=== PATIENT | male | born 1945 | race American Indian/Alaskan Native ===

== ENCOUNTER 2017-02-25 08:35 | Inpatient (IN) | payer MEDICARE, BC ==
[2016-08-14 08:52] VITALS: BMI 23.5
[2017-02-25] MEDS: ceFAZolin IV 1 gm in Dextrose 50 ML IVPB ONE ×2 (10:00→11:15)
[2017-02-25] MEDS ORDERED: Propofol 10 mg/ml Inj (20 ML) ONE (10:51)
[2017-02-25] MEDS ORDERED: Midazolam 2 MG/2 ML VIAL ONE (10:51)
[2017-02-25] MEDS ORDERED: Succinylcholine Chloride 20 mg/ml Syr (5 ml) IV ONE (10:53)
[2017-02-25] MEDS: Lidocaine 1% Inj (20ml) ONE ×2 (11:18→11:38)
[2017-02-25] MEDS ORDERED: Bupivacaine HCl 0.25% PF (10 ml) Inj ONE (11:18)
[2017-02-25] MEDS: Bupivacaine HCl 0.25% PF (10 ml) Inj ONE ×2 (11:19→11:38)
[2017-02-25] MEDS ORDERED: Neostigmine Methylsulfate 3mg/3ml Syringe IV ONE (11:30)
[2017-02-25] MEDS ORDERED: Rocuronium 10 mg/ml (5 ml) ONE (11:44)
[2017-02-25] MEDS ORDERED: Oxycodone/Acetaminophen 5/325 mg Tab PO PRN (11:49)
[2017-02-25] MEDS ORDERED: Dextrose 5%/0.45% NS 1,000 ML IV SCH (12:00)
[2017-02-25] MEDS ORDERED: Lactated Ringer's 1,000 ML IV ONE (12:30)
[2017-02-25] MEDS: HYDROmorphone 0.5 mg/0.5 ml ISec IVP PRN ×2 (12:36→12:53)
--- NOTE | 2017-02-25 14:03 | OP ---
PROCEDURE DATE: 02/25/2017 PREOPERATIVE DIAGNOSIS: Midline incisional hernia. POSTOPERATIVE DIAGNOSES: Midline incisional hernia with adhesions. PROCEDURE PERFORMED: Primary repair of midline incisional hernia with extensive lysis of adhesions. SURGEON: Eddie St MD DEBONING TEAM LEADER: Dr. Marroquin ANESTHESIA: General endotracheal. ESTIMATED BLOOD LOSS: 40 mL. POSTOPERATIVE CONDITION: Stable. INDICATIONS FOR SURGERY: This is a 71-year-old male status post a Cem's procedure for a sigmoid volvulus followed by a closure of colostomy. He has developed a midline incisional hernia and now w ill undergo repair. GROSS FINDINGS: There was a midline incisional hernia noted with a large hernia sac, which contained omentum and bowel. There were a fair amount of adhesions, which had to be taken down prior to prima ry repair. PROCEDURE: The patient taken to the operating room, placed in the supine position. General anesthes ia was administered. The abdomen was prepped and draped. A midline incision was made over the herni a site. Hernia sac was encountered, dissected free down to its fascial edge. It was opened and all remaining contents of the hernia were reduced through extensive lysis of adhesions. Serosal tears to the small bowel and transverse colon were repaired with silk. A mesenteric bleeder was also repaire d. The wound was irrigated with copious amounts of saline solution. A primary repair was then accom plished with interrupted #1 Novafil suture of the hernia. An adjacent tissue transfer closure was pe rformed on the overlying skin due to a large space defect. The patient's skin was closed with M onocryl and clips. The patient tolerated the procedure well, returned to recovery room in stable con dition. Eddie St MD cc: [id number] TT: 02/25/2017 14:02:16 en
--- NOTE | 2017-02-25 15:40 | CP.PCM.CON ---
History of Present Illness - History of Present Illness History of Present Illness: PGY2 Consult Note - Dr. Peace's service: Patient is a 71 year old male with PMHx of prostate cancer, laryngeal cancer, HTN, hypokalemia and vitamin D deficiency presenting s/p incisional hernia repair. Patient is currently in PACU. Patient has no complaints at this time. Patient denies fever, chills, chest pain, SOB, abdominal pain, nausea, vomiting, diarrhea, constipation, dysuria. PMHx: as above PSHx: prostatectomy, left knee surgery, hernia repair x2, colostomy Social Hx: quit smoking 7 years ago before which he smoked 1/2ppd for 4 years, denies ETOH and drug use Family Hx: denies cancer, stroke, PA, lung problems in family Allergies: NKDA Review of Systems - Constitutional Constitutional: absent: Chills, Fever - EENT Eyes: absent: Change in Vision Ears: absent: Dizziness - Cardiovascular Cardiovascular: absent: Chest Pain - Respiratory Respiratory: absent: Cough, Dyspnea - Gastrointestinal Gastrointestinal: absent: Abdominal Pain, Constipation, Diarrhea, Nausea, Vomiting - Genitourinary Genitourinary: absent: Dysuria - Musculoskeletal Musculoskeletal: absent: Back Pain - Integumentary Integumentary: absent: Rash - Neurological Neurological: absent: Dizziness, Headaches - Psychiatric Psychiatric: absent: Anxiety - Hematologic/Lymphatic Hematologic: absent: Easy Bleeding, Easy Bruising Past Patient History - Past Medical History & Family History Past Medical History?: Yes Past Family History: Reviewed and not pertinent - Past Social History Smoking Status: Former Smoker Alcohol: None Drugs: Denies Home Situation {Lives}: With Family - CARDIAC Hx Cardiac Disorders: Yes Hx Hypertension: Yes - HEENT Hx HEENT Problems: Yes (HX CANCER LARYNX 2012) - HEMATOLOGICAL/ONCOLOGICAL Hx Cancer: Yes (laryngeal cancer (2012)/HAD RADIATION/CHEMO 2012) Hx Chemotherapy: Yes Hx Metastesis: No Other/Comment: Laryngeal Ca 2012. Radiation for Prostatic CA 2002 - MUSCULOSKELETAL/RHEUMATOLOGICAL Hx Musculoskeletal Disorders: Yes Hx Osteoarthritis: Yes - GASTROINTESTINAL Hx Gastrointestinal Disorders: Yes Hx Bowel Surgery: Yes Hx Colostomy: Yes Hx Hemorrhoids: Yes Other/Comment: Hx. Colostomy october 2015 - GENITOURINARY/GYNECOLOGICAL Hx Genitourinary Disorders: Yes Hx Prostate Cancer: Yes Hx Prostate Problems: Yes - SURGICAL HISTORY Hx Surgeries: Yes Hx Arthroscopy: Yes (LEFT KNEE) Hx Herniorrhaphy: Yes (ventral hernia repair) Hx Joint Replacement: Yes (LEFT TOTAL KNEE REPLACEMENT IN 2010) Hx Vascular Access Device: Yes (CENTRAL LINE/REMOVED) Other/Comment: "PROSTATE SURGERY INSERTION GT TUBE DUE TO CA LARYNX REMOVAL GT TUBE - ANESTHESIA Hx Anesthesia: Yes Hx Anesthesia Reactions: No Hx Malignant Hyperthermia: No Has any member of the family had a problem w/ anesthesia?: (UNKNOWN) Meds Allergies/Adverse Reactions: Allergies Allergy/AdvReac Type Severity Reaction Status Date / Time pollen extracts Allergy Intermediate COUGH Verified 08/14/16 09:36 - Medications Medications: Current Medications Docusate Sodium (Colace) 100 mg PO BID [facility] Enoxaparin Sodium (Lovenox) 30 mg SC 1000,2200 [facility] Home Med (Ergocalciferol (Vitamin D2) [Vitamin D2]) 2,000 unit PO DAILY [facility] Home Med (Olmesartan/Amlodipin/Hcthiazid [Tribenzor 40-10-25 Mg Tablet]) 1 tab PO DAILY [facility] Dextrose/Sodium Chloride (Dextrose 5%/0.45% Ns 1000 Ml) 1,000 mls @ 100 mls/hr IV .Q10H [facility] Ondansetron HCl (Zofran Inj) 4 mg IVP Q6 PRN PRN Reason: Nausea/Vomiting Oxycodone/Acetaminophen (Percocet 5/325 Mg Tab) 2 tab PO Q4H PRN PRN Reason: pain Stop: 02/28/17 11:50 Pantoprazole Sodium (Protonix Inj) 40 mg IVP DAILY [facility] Physical Exam - Constitutional Appears: Non-toxic, No Acute Distress - Head Exam Head Exam: NORMAL INSPECTION - Eye Exam Eye Exam: EOMI - ENT Exam ENT Exam: Mucous Membranes Dry - Respiratory Exam Respiratory Exam: Clear to Auscultation Bilateral, NORMAL BREATHING PATTERN. absent: Rales, Rhonchi, Wheezes - Cardiovascular Exam Cardiovascular Exam: REGULAR RHYTHM, +S1, +S2. absent: Gallop, Systolic Murmur - GI/Abdominal Exam GI & Abdominal Exam: Normal Bowel Sounds, Soft, Tenderness (clean vertical dressing at midline). absent: Distended, Firm - Extremities Exam Extremities exam: Positive for: normal capillary refill, pedal pulses present. Negative for: pedal edema - Neurological Exam Neurological exam: Alert, Oriented x3 - Psychiatric Exam Psychiatric exam: Normal Affect, Normal Mood Results - Vital Signs Recent Vital Signs: Last Vital Signs Temp 97.2 F L 02/25/17 13:00 Pulse 62 02/25/17 14:30 Resp 12 02/25/17 14:30 BP 135/79 02/25/17 14:30 Pulse Ox 97 02/25/17 14:30 Assessment & Plan - Assessment and Plan (Free Text) Assessment: 1. s/p incisional hernia repair POD#[address] D5-1/2NS @ 100cc/hr Percocet 5/325mg 2 tab PO Q4H PRN pain Colace 100mg PO BID Zofran 4mg IVP Q6 PRN N/V 2. Leukopenia with neutropenia F/U CBC in AM F/U HIV Abs 3. Hypokalemia K+ 3.4 on 02/20/17 F/U CMP in AM Take potassium twice a day at home for 3 days and then resume daily 4. HTN Continue home med tomorrow Patient took medication this AM. 5. Vitamin D deficiency Vitamin D 2000U PO daily 6. Prophylaxis SCDs Lovenox 30mg SC BID Protonix 40mg PO daily
[2017-02-25] MEDS: Enoxaparin 30 mg Syringe SC SCH (21:58)
[2017-02-26 06:41] LABS: BASO % 0.2 % (0.0-2.0); EOS # 0.2 K/uL (0.0-0.7); EOS % 3.4 % (0.0-4.0); HEMATOCRIT 39.4 % (35.0-51.0); LYMPH # 1.1 K/uL (1.0-4.3); LYMPH % 17.8 % (20.0-40.0); MEAN CELL VOLUME 85.8 fL (80.0-94.0); MEAN CORPUSCULAR HEMOGLOBIN 27.8 pg (27.0-31.0); MEAN CORPUSCULAR HGB CONC 32.4 g/dL (33.0-37.0); MEAN PLATELET VOLUME 8.6 fL (7.2-11.7); MONO # 0.8 K/uL (0.0-0.8); MONO % 12.6 % (0.0-10.0); RED CELL DISTRIBUTION WIDTH 13.9 % (11.5-14.5); WHITE BLOOD COUNT 6.2 K/uL (4.8-10.8)
[2017-02-26 06:44] LABS: CHLORIDE 92 mmol/L (98-107)
[2017-02-26 06:45] LABS: POTASSIUM 3.4 mmol/L (3.6-5.2); SODIUM 141 mmol/L (132-148)
[2017-02-26 06:47] LABS: ALKALINE PHOSPHATASE 64 U/L (38-126); AST/SGOT 29 U/L (17-59); BILIRUBIN,TOTAL 0.7 mg/dL (0.2-1.3); BLOOD UREA NITROGEN 12 mg/dL (9-20); CARBON DIOXIDE 36 mmol/L (22-30); GFR AFRICAN-AMERICAN > 60; TOTAL PROTEIN 7.2 g/dL (6.3-8.3)
[2017-02-26 06:48] LABS: ALT/SGPT 21 U/L (21-72); CALCIUM 8.3 mg/dl (8.6-10.4); GLUCOSE,RANDOM 95 mg/dL (75-110)
[2017-02-26 08:13] VITALS: BP 157/88; PULSE 60; RESP 18; TEMP 98.5; O2SAT 96
[2017-02-26] MEDS ORDERED: Potassium Chloride 20 mEq ER Tab PO ONE (09:30)
[2017-02-26] MEDS: Enoxaparin 30 mg Syringe SC SCH (09:37)
[2017-02-26] MEDS ORDERED: Ergocalciferol 50,000 Intl Units Cap PO SCH (10:00)
[2017-02-26] MEDS ORDERED: LOSARTAN 100 MG PO SCH (10:00)
--- NOTE | 2017-02-26 11:23 | CP.PCM.PN ---
<Maurice Elliott - Last Filed: 02/26/17 11:19> Subjective - Date & Time of Evaluation Date of Evaluation: 02/26/17 Time of Evaluation: 11:19 - Subjective Subjective: PGY-[address] Peace's service Pt seen and examined at bedside. Pt is POD#1 from hernia repair. Pt states that the pain is well tolerating. He is passing flatus. Denies fevers, chills, chest pain, sob, nausea or vomiting. Pt tolerated breakfast this morning well. Objective - Vital Signs/Intake and Output Vital Signs (last 24 hours): Temp Pulse Resp BP Pulse Ox 98.5 F 60 18 157/88 H 96 02/26/17 07:00 02/26/17 07:00 02/26/17 07:00 02/26/17 07:00 02/26/17 07:00 Intake and Output: 02/26/17 02/26/17 06:59 18:59 Output Total 950 Balance -950 - Medications Medications: Current Medications Amlodipine Besylate (Norvasc) 10 mg PO DAILY [facility] Last Admin: 02/26/17 09:34 Dose: 10 mg Docusate Sodium (Colace) 100 mg PO BID [facility] Last Admin: 02/26/17 09:36 Dose: 100 mg Enoxaparin Sodium (Lovenox) 30 mg SC 1000,2200 [facility] Last Admin: 02/26/17 09:37 Dose: 30 mg Ergocalciferol (Drisdol 50,000 Intl Units Cap) 1 cap PO QWK [facility] Last Admin: 02/26/17 09:36 Dose: 1 cap Hydrochlorothiazide (Hydrodiuril) 25 mg PO DAILY [facility] Last Admin: 02/26/17 09:35 Dose: 25 mg Dextrose/Sodium Chloride (Dextrose 5%/0.45% Ns 1000 Ml) 1,000 mls @ 100 mls/hr IV .Q10H [facility] Losartan Potassium (Cozaar) 100 mg PO DAILY [facility] Last Admin: 02/26/17 09:37 Dose: 100 mg Ondansetron HCl (Zofran Inj) 4 mg IVP Q6 PRN PRN Reason: Nausea/Vomiting Oxycodone/Acetaminophen (Percocet 5/325 Mg Tab) 2 tab PO Q4H PRN PRN Reason: pain Stop: 02/28/17 11:50 Pantoprazole Sodium (Protonix Inj) 40 mg IVP DAILY [facility] Last Admin: 02/26/17 09:38 Dose: 40 mg - Labs Labs: 02/26/17 06:05 02/26/17 06:05 - Constitutional Appears: Well, Non-toxic, No Acute Distress - Head Exam Head Exam: ATRAUMATIC, NORMOCEPHALIC - Respiratory Exam Respiratory Exam: Clear to Ausculation Bilateral, NORMAL BREATHING PATTERN - Cardiovascular Exam Cardiovascular Exam: +S1, +S2 - GI/Abdominal Exam GI & Abdominal Exam: Soft, Normal Bowel Sounds Additional comments: dressings in place, c/d/i - Back Exam Back Exam: NORMAL INSPECTION - Neurological Exam Neurological Exam: Alert, Awake - Skin Skin Exam: Dry, Warm Assessment and Plan - Assessment and Plan (Free Text) Assessment: 1. s/p incisional hernia repair Pain tolerate well, tolerating PO intake and passing flatus POD#[address] D5-1/2NS @ 100cc/hr Percocet 5/325mg 2 tab PO Q4H PRN pain Colace 100mg PO BID Zofran 4mg IVP Q6 PRN N/V 2. Leukopenia with neutropenia WBC wnl HIV Abs negative 3. Hypokalemia 3.4 on 02/26 Take potassium twice a day at home for 3 days and then resume daily 4. HTN Continue home med tomorrow 5. Vitamin D deficiency Vitamin D 2000U PO daily 6. Prophylaxis SCDs Lovenox 30mg SC BID Protonix 40mg PO daily <Robert Peace Jr. - Last Filed: 03/08/17 16:36> Objective - Vital Signs/Intake and Output Vital Signs (last 24 hours): Temp Pulse Resp BP Pulse Ox 98.5 F 60 18 157/88 H 96 02/26/17 07:00 02/26/17 08:00 02/26/17 07:00 02/26/17 07:00 02/26/17 07:00 - Labs Labs: 02/26/17 06:05 02/26/17 06:05 Attending/Attestation - Attestation I have personally seen and examined this patient.: Yes I have fully participated in the care of the patient.: Yes I have reviewed all pertinent clinical information, including history, physical exam and plan: Yes Notes (Text): 03/08/17 16:35 Patient seen and examined. Reviewed resident on an plan of care. Agree with findings and plan
== END 2017-02-26 12:10 | disposition home or self-care (01) | DRG 337 ==
LOC: C.SDS 08:35 → C.6T 11:50
PROVIDERS: ADMIT Surgery; ATTEND Surgery
PROC: 0DNW0ZZ Release Peritoneum, Open Approach (ICD-10-PCS; 2017-02-25)
PROC: 0WQF0ZZ Repair Abdominal Wall, Open Approach (ICD-10-PCS; principal; 2017-02-25 10:00)
DX: K43.0 Incisional hernia with obstruction, without gangrene (principal); D70.9 Neutropenia, unspecified; I10 Essential (primary) hypertension; E87.6 Hypokalemia; E55.9 Vitamin D deficiency, unspecified; Z80.42 Family history of malignant neoplasm of prostate; Z85.21 Personal history of malignant neoplasm of larynx; Z87.891 Personal history of nicotine dependence

== ENCOUNTER 2017-09-02 12:20 | Day surgery (SDC) | payer MEDICARE, BC ==
[2017-08-28 10:10] VITALS: BMI 25.0
[2017-09-02 15:39] LABS: CHLORIDE 97 mmol/L (98-107); SODIUM 137 mmol/L (132-148)
[2017-09-02 15:40] LABS: POTASSIUM 3.3 mmol/L (3.6-5.2)
[2017-09-02 15:42] LABS: GFR AFRICAN-AMERICAN > 60
[2017-09-02 15:43] LABS: BLOOD UREA NITROGEN 21 mg/dL (9-20); CALCIUM 8.9 mg/dl (8.6-10.4); CARBON DIOXIDE 31 mmol/L (22-30); GLUCOSE,RANDOM 100 mg/dL (75-110)
[2017-09-02] MEDS ORDERED: Potassium Chloride 20 mEq ER Tab PO ONE ×2 (16:00→16:01)
[2017-09-02] MEDS ORDERED: Midazolam 2 MG/2 ML VIAL ONE (16:31)
[2017-09-02] MEDS ORDERED: Iohexol 350mg/ml 100 ML ONE (16:31)
--- NOTE | 2017-09-02 17:29 | CP.PCM.PN ---
Subjective - Date & Time of Evaluation Date of Evaluation: 09/02/17 Time of Evaluation: 17:27 - Subjective Subjective: Patient s/p Cardiac catheterization Non Obstructive coronaries EF 40% Hypertensive cardiomyopathy D/C home at 8pm tonight Daughter will come pick him up as per the patient F/U with my office in 1 week continue home meds Objective - Labs Labs: 09/02/17 15:22
[2017-09-02] MEDS ORDERED: Sodium Chloride 0.9% 500 ML IV SCH (17:30)
[2017-09-02] MEDS ORDERED: Sodium Chloride 0.9% 500 ML IV ONE (18:30)
[2017-09-02 19:51] VITALS: BP 129/79; PULSE 72; RESP 16; TEMP 97; O2SAT 98
--- NOTE | 2017-09-09 02:17 | CARDCATH ---
PROCEDURE DATE: 09/02/2017 PROCEDURES: 1. Left heart catheterization, LV angiogram and coronary angiogram. 2. Abdominal aortogram. 3. Bilateral peripheral arterial angiogram. 4. Radiological image supervision and radiological image interpretation. PERFORMING PHYSICIAN: Dr. Jose Dixon. CLINICAL INDICATIONS: 1. Abnormal stress test. 2. Chest pain. 3. Hypertension. 4. Intermittent claudication. PROCEDURE: After informed consent, the patient was prepped and draped in the usual sterile fashion. A 2% lidocaine was given in the right groin of the local anesthesia. Using micropuncture technique, a 6-Rwandan sheath was injected into right common femoral artery. A JL4 6-[place]wandan diagnostic catheter engaged into left main coronary artery. Radio contrast injected and left coronary angiogram was performed. Then JR4 6-[place] diagnostic catheter was engaged into right coronary artery. Radiocontrast injected and right coronary angiogram was performed. Pigtail inserted into left ventricle across the aortic valve. Using the power injector, contrast injected and LV angiogram was performed. Omni Flush 5-[place]an catheter passed in abdominal aorta. Using the power injector abdominal aortogram and bilateral lower extremity arterial angiogram was performed. The patient tolerated the procedure well. Post-procedure Perclose suture deployed in the right groin with excellent hemostasis. FINDINGS: 1. Left main coronary artery is patent. 2. Proximal mid and LAD is patent. Diagonal 1 branch has a osteal 50% restenosis. 3. Left circumflex and obtuse marginal branches are patent. 4. Right coronary arteries are dominant and patent. 5. LV ejection fraction of approximately 60%. No gradient across aortic valve. EDP 24. 6. Normal abdominal aorta. 7. Bilateral iliac artery is torturous. Otherwise, they are patent. Bilateral common femoral arteries are patent. CONCLUSION: 1. Nonobstructive coronary arteries. 2. Diagonal 1 has osteal 50% nonobstructive stenosis. 3. Bilateral iliac arteries and common femoral arteries are patent. Recommend medical management. Jose Dixon MD
== END 2017-09-02 20:15 | disposition home or self-care (01) ==
LOC: C.CATHLAB 12:20
PROVIDERS: ATTEND Internal Medicine Cardiovascular Disease
DX: I73.9 Peripheral vascular disease, unspecified (principal); R94.39 Abnormal result of other cardiovascular function study; I10 Essential (primary) hypertension; R07.9 Chest pain, unspecified
CPT/HCPCS: 36200; 36415; 75625; 75716; 80048; 93458; C1760; C1766; C1887; J0360; J1644; J2250; J3010; J7040; Q9967

== ENCOUNTER 2017-11-10 22:08 | Emergency (ER) | payer MEDICARE, BC ==
[2017-11-10 22:09] VITALS: BMI 25.0
--- NOTE | 2017-11-10 23:59 | C.PDOC ---
History Of Present Illness 72 y/o M c PMHx HTN p/w cough, sneezing, and congestion x 2-3 weeks. Patient states he was taking mucinex but symptoms persisted so after 1.5 weeks, patient went to see PMD 6 days ago and was started on promethazine DM and Augmentin. He comes to ED today because symptoms persist. He denies fever, pain, dyspnea. Time Seen by Provider: 11/10/17 22:56 Chief Complaint (Nursing): Cough, Cold, Congestion Past Medical History Vital Signs: Last Vital Signs Temp 97.7 F 11/10/17 22:29 Pulse 101 H 11/10/17 22:29 Resp 20 11/10/17 22:29 BP 149/69 11/10/17 22:29 Pulse Ox 98 11/11/17 00:01 - Medical History PMH: Diverticulitis, HTN, Obstructive Bowel Denies: Atrial Fibrillation, Chronic Kidney Disease Surgical History: Endoscopy - [facility] Procedures BYPASS SIGMOID COLON TO CUTANEOUS, OPEN APPROACH (06/11/16) CENTRAL VENOUS CATHETER PLACEMENT WITH GUIDANCE (07/22/13) DILATION OF SIGMOID COLON WITH INTRALUMINAL DEVICE, ENDO (05/08/16) DX ULTRASOUND-THORAX NEC (07/22/13) ESOPHAGOGASTRODUODENOSCOPY [EGD] W/CLOSED BIOPSY (07/20/13) INCIS W REM OF FORIEGN BODY OR DEV FROM SKIN & SUBCUT TISSUE (01/18/15) INJECT/INFUSE NEC (03/25/14) INSERT INFUSION DEV IN R INT JUGULAR VEIN, PERC (05/08/16) INSERTION OF TOTALLY IMPLANTABLE VASC ACCESS DEVIC (07/22/13) OTH & OPEN REP OTH HERNIA OF ANTER ABD WALL W GRF OR PROSTH (02/15/15) OTHER ENDOSCOPY OF SM INTEST (12/09/13) PERCUTANEOUS [ENDOSCOPIC] GASTROSTOMY [PEG] (07/20/13) RELEASE PERITONEUM, OPEN APPROACH (02/25/17) REMOV GASTROSTOMY TUBE (12/09/13) REPAIR ABDOMINAL WALL, OPEN APPROACH (02/25/17) REPOSITION SIGMOID COLON, OPEN APPROACH (06/11/16) RESECTION OF SIGMOID COLON, OPEN APPROACH (06/11/16) RIGID PROCTOSIGMOIDOSCOPY (06/21/15) THORAX SFT TISS XRAY NEC (07/22/13) Family History: States: No Known Family Hx - Social History Hx Tobacco Use: No Hx Alcohol Use: No Hx Substance Use: No - Immunization History Hx Tetanus Toxoid Vaccination: No Hx Influenza Vaccination: Yes Hx Pneumococcal Vaccination: Yes Review Of Systems Except As Marked, All Systems Reviewed And Found Negative. Constitutional: Negative for: Fever Cardiovascular: Negative for: Chest Pain Physical Exam - Physical Exam Additional Physical Exam Comments: Constitutional: No acute distress. Head: Normocephalic. Atraumatic. Eyes: PERRL. ENT: Moist mucous membranes. No pharyngeal erythema, no exudates. Neck: Supple. Cardiovascular: Borderline tachycardia. Radial pulse 2+ bilaterally. Chest: No tenderness. Respiratory: No focal rhonchi or crackles. No accessory muscle use. GI: Soft. Nontender. Nondistended. Back: No CVA tenderness. Musculoskeletal: No swelling or tenderness. Skin: No rash. Neurologic: Alert, no focal deficit. ED Course And Treatment O2 Sat by Pulse Oximetry: 98 Medical Decision Making Medical Decision Making: Will check CXR to exclude walking pneumonia. Otherwise, signs and symptoms consistent with viral illness, already on antibiotics. Advised finishing antibiotics, taking supportive medications, mucinex, cough syrup, ibuprofen/ acetaminophen, PO fluids, rest, humidified air. F/u PMD, instructed to return to ED for worsening pain, fever, vomiting, dyspnea. CXR no infiltrate or consolidation. Disposition - Disposition Disposition: HOME/ ROUTINE Disposition Time: 00:22 Condition: STABLE Instructions: Upper Respiratory Infection (ED) Forms: [employer] ([place]) - Clinical Impression Clinical Impression: Upper respiratory infection
[2017-11-11 00:42] VITALS: BP 162/66; PULSE 72; RESP 16; TEMP 97.6; O2SAT 96
--- NOTE | 2017-11-11 09:04 | RAD ---
HISTORY: cough, r/o PNA COMPARISON: 08/14/2016. FINDINGS: LUNGS: The lungs are well inflated and clear. PLEURA: No significant pleural effusion identified, no pneumothorax apparent. CARDIOVASCULAR: There is mild cardiomegaly. OSSEOUS STRUCTURES: No significant abnormalities. VISUALIZED UPPER ABDOMEN: Normal. OTHER FINDINGS: None. IMPRESSION: Mild cardiomegaly. No active pulmonary disease.
== END 2017-11-11 01:05 | disposition home or self-care (01) ==
LOC: C.ER 22:08
DX: J06.9 Acute upper respiratory infection, unspecified (principal)

== ENCOUNTER 2017-11-14 02:44 | Inpatient (IN) | payer MEDICARE, BC ==
[2017-11-14 02:44] VITALS: BMI 25.0
--- NOTE | 2017-11-14 03:04 | C.PDOC ---
History Of Present Illness <Silvia Rutledge - Last Filed: 11/14/17 05:35> <Damir Goodman - Last Filed: 11/14/17 06:36> Patient is a 71 y/o male, with a Hx of HTN, who presents to the ED BIBA in severe respiratory distress. Medics reported patient wasa using accessory muscles to help in the work of breathing and was found in the tripod position; medics administered nitroglycerin 0.4mg tabs sl and Lasix 20 mg - clinically they felt pt was in heart failure. They reported systolic blood pressure originally 220 but decreased to 140 after treatment. On arrival to ED, patient was semed improved however still in some respiratory distress. He was speaking in short phrases with supraclavicular contractions and tachypnea. Pt denies Hx of COPD or CHF. Patient was recently diagnosed with bronchitis and was started on Augmentin to no relief. No other physical complaints at this time. (Damir Goodman) <Silvia Rutledge - Last Filed: 11/14/17 05:35> History Per: Patient, EMS History/Exam Limitations: no limitations Onset/Duration Of Symptoms: Mins (CONVEYOR MONITOR) Current Symptoms Are (Timing): Still Present Exacerbating Factor(s): Exertion, Laying Flat, Coughing Severity: Severe Pain Scale Rating Of: 8 Associated Symptoms: Productive Cough, Ankle/Leg Swelling Reports Recently: Seen In ED Recent travel outside of the [place]: No <Damir Goodman - Last Filed: 11/14/17 06:36> Time Seen by Provider: 11/14/17 02:52 Chief Complaint (Nursing): Shortness Of Breath Past Medical History Reviewed: Historical Data, Nursing Documentation, Vital Signs - Medical History PMH: Diverticulitis, HTN, Hypercholesterolemia, Obstructive Bowel Denies: Atrial Fibrillation, COPD, Chronic Kidney Disease Surgical History: Endoscopy Family History: States: Unknown Family Hx - Social History Hx Tobacco Use: No Hx Alcohol Use: No Hx Substance Use: No - Immunization History Hx Tetanus Toxoid Vaccination: No Hx Influenza Vaccination: Yes Hx Pneumococcal Vaccination: Yes <Damir Goodman - Last Filed: 11/14/17 06:36> Vital Signs: Last Vital Signs Temp 97.9 F 11/14/17 02:51 Pulse 95 H 11/14/17 05:59 Resp 23 11/14/17 05:59 BP 156/84 H 11/14/17 05:59 Pulse Ox 94 L 11/14/17 06:30 - [facility] Procedures BYPASS SIGMOID COLON TO CUTANEOUS, OPEN APPROACH (06/11/16) CENTRAL VENOUS CATHETER PLACEMENT WITH GUIDANCE (07/22/13) DILATION OF SIGMOID COLON WITH INTRALUMINAL DEVICE, ENDO (05/08/16) DX ULTRASOUND-THORAX NEC (07/22/13) ESOPHAGOGASTRODUODENOSCOPY [EGD] W/CLOSED BIOPSY (07/20/13) INCIS W REM OF FORIEGN BODY OR DEV FROM SKIN & SUBCUT TISSUE (01/18/15) INJECT/INFUSE NEC (03/25/14) INSERT INFUSION DEV IN R INT JUGULAR VEIN, PERC (05/08/16) INSERTION OF TOTALLY IMPLANTABLE VASC ACCESS DEVIC (07/22/13) OTH & OPEN REP OTH HERNIA OF ANTER ABD WALL W GRF OR PROSTH (02/15/15) OTHER ENDOSCOPY OF SM INTEST (12/09/13) PERCUTANEOUS [ENDOSCOPIC] GASTROSTOMY [PEG] (07/20/13) RELEASE PERITONEUM, OPEN APPROACH (02/25/17) REMOV GASTROSTOMY TUBE (12/09/13) REPAIR ABDOMINAL WALL, OPEN APPROACH (02/25/17) REPOSITION SIGMOID COLON, OPEN APPROACH (06/11/16) RESECTION OF SIGMOID COLON, OPEN APPROACH (06/11/16) RIGID PROCTOSIGMOIDOSCOPY (06/21/15) THORAX SFT TISS XRAY NEC (07/22/13) Review Of Systems Constitutional: Negative for: Fever, Chills, Sweats, Weakness, Malaise Eyes: Negative for: Pain ENT: Negative for: Ear Pain Cardiovascular: Positive for: Orthopnea, Paroxysmal Noc. Dyspnea, Edema. Negative for: Chest Pain, Palpitations, Light Headedness Respiratory: Positive for: Cough, Shortness of Breath, SOB with Excertion, Other (respiratory distress; bronchitis). Negative for: Pleuritic Pain, Sputum , Wheezing Gastrointestinal: Negative for: Nausea, Vomiting, Abdominal Pain, Diarrhea Musculoskeletal: Negative for: Neck Pain, Shoulder Pain, Arm Pain Skin: Negative for: Rash Neurological: Negative for: Weakness Psych: Negative for: Anxiety, Depression <Zinzuwadia,Shreni N - Last Filed: 11/14/17 06:36> Physical Exam - Physical Exam Appears: Well, Non-toxic, In Acute Distress Skin: Normal Color, Warm, Dry, Diaphoretic Head: Atraumatic, Normacephalic Eye(s): bilateral: Normal Inspection Ear(s): Bilateral: Normal Nose: Normal Oral Mucosa: Moist Tongue: Normal Appearing Lips: Normal Appearing Teeth: Normal Dentition Gingiva: Normal Appearing Throat: Normal Neck: Normal, Normal ROM, Trachea Midline, No Midline Cervical Tenderness, Supple Lymphatic: Normal Exam Chest: Symmetrical Cardiovascular: Rhythm Regular, No Murmur, No JVD Respiratory: No Normal Breath Sounds, No Decreased Breath Sounds, Accessory Muscle Use, No Rales, Rhonchi (coarse anteriorly and posteriorly), No Wheezing Gastrointestinal/Abdominal: Normal Exam, Soft, No Tenderness Extremity: Normal ROM, Swelling (2+ pitting edema to bilateral lower extremities ) Neurological/Psych: Oriented x3, Normal Cognition <Damir Goodman - Last Filed: 11/14/17 06:36> ED Course And Treatment - Laboratory Results Result Diagrams: 11/14/17 03:03 11/14/17 03:03 <Silvia Rutledge - Last Filed: 11/14/17 05:35> - Laboratory Results Result Diagrams: 11/14/17 03:03 11/14/17 03:03 ECG Rhythm: Sinus Rhythm Interpretation Of ECG: Frequent PVCs. FL: 150. QR: 94. QT: 350. QTC: 449. LVH Rate From EC O2 Sat by Pulse Oximetry: 94 (on 2L) Pulse Ox Interpretation: Normal Progress Note: Patient to receive BiPAP; 100% 12/6, rate of 12. EKG, CXR, UA and blood work ordered. On re-evaluation, patient tolerated BiPAP and is doing well. <Damir Goodman - Last Filed: 11/14/17 06:36> Critical Care Time - Critical Care Note Total Time (in mins): 45 Documented critical care: time excludes all time spent performing seperately billable procedures. <Damir Goodman - Last Filed: 11/14/17 06:36> Medical Decision Making <Silvia Rutledge - Last Filed: 11/14/17 05:35> <Damir Goodman - Last Filed: 11/14/17 06:36> Medical Decision Making: pt with severe respiratory distress. recently started on a course of augmentin for bronchitis. he reports a recent cxr here in the ed recently. Started on bipap. continuous utility technician and pulse ox vbg and abg ordered labs ordered and reviewed bnp elevated to 447 and troponin 0.02 hypokelamia at 2.8 mg 1.8 both replaced case discussed with hospitalist for admission. (Damir Goodman) Disposition <Silvia Rutledge - Last Filed: 11/14/17 05:35> Counseled Patient/Family Regarding: Diagnosis - Disposition Disposition Time: 06:36 <Damir Goodman - Last Filed: 11/14/17 06:36> - Disposition Disposition: HOME/ ROUTINE Condition: GUARDED - Clinical Impression Clinical Impression: Dyspnea, Respiratory distress, Acute congestive heart failure <Silvia Rutledge - Last Filed: 11/14/17 05:35> - Scribe Statement The provider has reviewed the documentation as recorded by the Scribe <Damir Goodman - Last Filed: 11/14/17 06:36> - Scribe Statement Giselle Diamond All medical record entries made by the Scribe were at my direction and personally dictated by me. I have reviewed the chart and agree that the record accurately reflects my personal performance of the history, physical exam, medical decision making, and the department course for this patient. I have also personally directed, reviewed, and agree with the discharge instructions and disposition. (Damir Goodman)
[2017-11-14 03:06] LABS: DRAW SITE VBG; VENOUS BLOOD GAS BASE EXCESS 9.7 mmol/L (0.0-2.0); VENOUS BLOOD GAS PCO2 56 mmHg (40-60); VENOUS BLOOD PH 7.42 (7.32-7.43)
[2017-11-14 03:20] LABS: WHITE BLOOD COUNT 4.7 K/uL (4.8-10.8)
[2017-11-14 03:21] LABS: BASO % 0.7 % (0.0-2.0); EOS % 23.2 % (0.0-4.0); HEMATOCRIT 38.6 % (35.0-51.0); LYMPH % 28.9 % (20.0-40.0); MEAN CELL VOLUME 86.9 fL (80.0-94.0); MEAN CORPUSCULAR HEMOGLOBIN 29.8 pg (27.0-31.0); MEAN CORPUSCULAR HGB CONC 34.3 g/dL (33.0-37.0); MEAN PLATELET VOLUME 8.4 fL (7.2-11.7); MONO % 13.9 % (0.0-10.0); NRBC % 0.1 % (0.0-2.0); PLATELET COUNT 243 K/uL (130-400); RED CELL DISTRIBUTION WIDTH 14.2 % (11.5-14.5)
[2017-11-14 03:22] LABS: EOS # 1.1 K/uL (0.0-0.7); LYMPH # 1.4 K/uL (1.0-4.3); MONO # 0.7 K/uL (0.0-0.8)
[2017-11-14 03:27] LABS: INR 1.1
[2017-11-14 03:34] LABS: RBC URINE 5 /hpf (0-3); URINE BILIRUBIN NEGATIVE (NEGATIVE); URINE BLOOD TRACE (NEGATIVE); URINE COLOR Straw (YELLOW); URINE GLUCOSE (UA) NORMAL (Normal); URINE KETONE NEGATIVE (NEGATIVE); URINE LEUKOCYTE ESTERASE NEG Leu/uL (Negative); URINE PROTEIN 2+ mg/dL (NEGATIVE); URINE UROBILINOGEN NORMAL mg/dL (0.2-1.0); WBC URINE < 1 /hpf (0-5)
[2017-11-14 03:36] LABS: ALB/GLOB RATIO 0.8 (1.0-2.1); ALKALINE PHOSPHATASE 97 U/L (38-126); ALT/SGPT 27 U/L (21-72); AST/SGOT 36 U/L (17-59); BILIRUBIN,TOTAL 0.7 mg/dL (0.2-1.3); BLOOD UREA NITROGEN 28 mg/dL (9-20); CALCIUM 8.7 mg/dl (8.6-10.4); CARBON DIOXIDE 35 mmol/L (22-30); CHLORIDE 98 mmol/L (98-107); CHOLESTEROL 128 mg/dL (0-199); GFR AFRICAN-AMERICAN > 60; GLUCOSE,RANDOM 121 mg/dL (75-110); MAGNESIUM 1.9 mg/dL (1.6-2.3); POTASSIUM 2.8 mmol/L (3.6-5.2); SODIUM 141 mmol/L (132-148); TOTAL PROTEIN 9.1 g/dL (6.3-8.3)
[2017-11-14] MEDS ORDERED: Magnesium Sulfate 1 gm in D5W 1 GM/100 ML BAG IVPB ONE ×2 (03:54→04:01)
[2017-11-14] MEDS ORDERED: Potassium Chloride 20 mEq ER Tab PO STA ×2 (03:55→03:56)
[2017-11-14] MEDS ORDERED: Potassium Chloride 20 mEq ER Tab PO ONE ×2 (04:01→20:18)
[2017-11-14 04:16] LABS: THYROID STIMULATING HORMONE 1.33 mIU/L (0.46-4.68)
[2017-11-14 04:22] LABS: BASOPHIL 1 % (0-2); EOSINOPHIL 20 % (0-4); NEUTROPHIL 36 % (50-75); TOTAL CELLS COUNTED 100
--- NOTE | 2017-11-14 06:02 | CP.PCM.HP ---
<Jose Huffman - Last Filed: 11/14/17 05:43> History of Present Illness - History of Present Illness History of Present Illness: Medicine H/P CC: SOB HPI: Patient is a 72M with a PMH of HTN, prostate cancer come to the ED with a 2 week history of SOB. It started two weeks ago associated with a productive cough of white sputum. The patient cough so much that he is unable to sleep. He is usually able to walk over 15 blocks without being SOB until 2 weeks ago. No he gets SOB at rest. He is able to lay flat without difficulty. The SOB is not related to position. He denies PND. Recently noticed swelling in the b/l lower extremities. Went to his primary DrJuan office two weeks ago, was prescribed Abx but it did not help. Went to ED last week and was sent home on Abx, it did not help. 2 month ago went to Dr. Dixon's office, ended up getting nuclear stress test and a cath that was normal. He placed the patient on ASA and statin. Denies chest pain, fever, chills. PMD: Cristine Cards: Zack ROS: Per HPI PMH: HTN, prostate cancer, laryngeal CA, volvulus x2 PSH: prostatectomy, Ex lap x2 with perez and reversal, L. knee replacement, port placement and removal FH: none SH: smoke 1-3 cigs a day for 5 years 36 years ago, denies alcohol, denies drugs Meds: See MAR All: Pollen Present on Admission - Present on Admission Any Indicators Present on Admission: No Review of Systems - Review of Systems Review of Systems: Per HPI Past Patient History - Past Medical History & Family History Past Medical History?: Yes - Past Social History Smoking Status: Never Smoked - CARDIAC Hx Atrial Fibrillation: No Hx Hypercholesterolemia: Yes Hx Hypertension: Yes - PULMONARY Hx Chronic Obstructive Pulmonary Disease (COPD): No - NEUROLOGICAL Hx Neurological Disorder: No - HEENT Hx HEENT Problems: Yes (LARYNGEAL CANCER) - RENAL Hx Chronic Kidney Disease: No - ENDOCRINE/METABOLIC Hx Endocrine Disorders: No - INTEGUMENTARY Hx Dermatological Problems: No - MUSCULOSKELETAL/RHEUMATOLOGICAL Hx Musculoskeletal Disorders: Yes Hx Osteoarthritis: Yes - GASTROINTESTINAL Hx Diverticulitis: Yes - GENITOURINARY/GYNECOLOGICAL Hx Genitourinary Disorders: Yes Hx Prostate Cancer: Yes Hx Prostate Problems: Yes - PSYCHIATRIC Hx Substance Use: No - SURGICAL HISTORY Hx Surgeries: Yes Hx Arthroscopy: Yes (LEFT KNEE) Hx Herniorrhaphy: Yes (ventral hernia repair X 2) Hx Joint Replacement: Yes (LEFT TOTAL KNEE REPLACEMENT IN 2010) Hx Musculoskeletal Surgery: (knee) Hx Orthopedic Surgery: Yes Hx Vascular Access Device: Yes (HENCE REMOVED) Other/Comment: PROSTATECTOMY - ANESTHESIA Hx Anesthesia: Yes Hx Anesthesia Reactions: No Hx Malignant Hyperthermia: No Meds Allergies/Adverse Reactions: Allergies Allergy/AdvReac Type Severity Reaction Status Date / Time pollen extracts Allergy Intermediate COUGH Verified 11/14/17 02:57 Physical Exam - Constitutional Appears: Well, Non-toxic, No Acute Distress - Head Exam Head Exam: ATRAUMATIC, NORMAL INSPECTION, NORMOCEPHALIC - Eye Exam Eye Exam: EOMI - ENT Exam ENT Exam: Mucous Membranes Moist - Respiratory Exam Respiratory Exam: Rhonchi (diffuse). absent: Chest Wall Tenderness, Clear to Auscultation Bilateral, Prolonged Expiratory Phase, Rales, Wheezes, Respiratory Distress, Stridor Additional comments: BiPAP - Cardiovascular Exam Cardiovascular Exam: REGULAR RHYTHM. absent: Tachycardia - GI/Abdominal Exam GI & Abdominal Exam: Normal Bowel Sounds, Soft. absent: Distended, Tenderness - Extremities Exam Additional comments: swelling around ankles, 1+ pitting - Neurological Exam Neurological exam: Alert, Oriented x3 - Psychiatric Exam Psychiatric exam: Normal Affect, Normal Mood - Skin Skin Exam: Dry, Intact, Normal Color, Warm Results - Vital Signs Recent Vital Signs: Last Vital Signs Temp 97.9 F 11/14/17 02:51 Pulse 92 H 11/14/17 05:25 Resp 21 11/14/17 05:25 BP 146/99 H 11/14/17 05:25 Pulse Ox 94 L 11/14/17 05:38 - Labs Result Diagrams: 11/14/17 03:03 11/14/17 03:03 Labs: Laboratory Results - last 24 hr 11/14/17 11/14/17 11/14/17 02:56 02:56 03:00 WBC RBC Hgb Hct MCV MCH MCHC RDW Plt Count MPV Neut % (Auto) Lymph % (Auto) [place] % (Auto) Eos % (Auto) Baso % (Auto) Neut # Lymph # [place] # Eos # Baso # Neutrophils % (Manual) Lymphocytes % (Manual) Monocytes % (Manual) Eosinophils % (Manual) Basophils % (Manual) Platelet Estimate PT INR APTT Puncture Site Vbg pO2 25 L Zac Test Na VBG pH 7.42 VBG pCO2 56 VBG HCO3 31.1 VBG O2 Sat (Calc) 41.5 VBG Base Excess 9.7 H Sodium Potassium Chloride Carbon Dioxide Anion Gap BUN Creatinine Est GFR ( Amer) Est GFR (Non-Af Amer) Random Glucose Calcium Magnesium Total Bilirubin AST ALT Alkaline Phosphatase Troponin I NT-Pro-B Natriuret Pep Total Protein Albumin Globulin Albumin/Globulin Ratio Triglycerides Cholesterol LDL Cholesterol Direct HDL Cholesterol TSH 3rd Generation Urine Color Straw Urine Clarity Clear Urine pH 5.0 Ur Specific Quinter 1.012 Urine Protein 2+ H Urine Glucose (UA) Normal Urine Ketones Negative Urine Blood Trace H Urine Nitrate Negative Urine Bilirubin Negative Urine Urobilinogen Normal Ur Leukocyte Esterase Neg Urine WBC (Auto) < 1 Urine RBC (Auto) 5 H Influenza Typ A,B (EIA) Negative for flu a/b 11/14/17 11/14/17 11/14/17 03:03 03:03 03:03 WBC 4.7 L RBC 4.44 Hgb 13.3 Hct 38.6 MCV 86.9 MCH 29.8 MCHC 34.3 RDW 14.2 Plt Count 243 MPV 8.4 Neut % (Auto) 33.3 L Lymph % (Auto) 28.9 [place] % (Auto) 13.9 H Eos % (Auto) 23.2 H Baso % (Auto) 0.7 Neut # 1.6 L Lymph # 1.4 [place] # 0.7 Eos # 1.1 H Baso # 0.0 Neutrophils % (Manual) 36 L Lymphocytes % (Manual) 30 Monocytes % (Manual) 13 H Eosinophils % (Manual) 20 H Basophils % (Manual) 1 Platelet Estimate Normal PT 12.7 H INR 1.1 APTT 27 Puncture Site pO2 Zac Test VBG pH VBG pCO2 VBG HCO3 VBG O2 Sat (Calc) VBG Base Excess Sodium 141 Potassium 2.8 L Chloride 98 Carbon Dioxide 35 H Anion Gap 11 BUN 28 H Creatinine 1.0 Est GFR ( Amer) > 60 Est GFR (Non-Af Amer) > 60 Random Glucose 121 H Calcium 8.7 Magnesium 1.9 Total Bilirubin 0.7 AST 36 ALT 27 Alkaline Phosphatase 97 Troponin I 0.0230 NT-Pro-B Natriuret Pep 447 Total Protein 9.1 H Albumin 4.1 Globulin 5.1 H Albumin/Globulin Ratio 0.8 L Triglycerides 59 Cholesterol 128 LDL Cholesterol Direct 51 HDL Cholesterol 48 TSH 3rd Generation 1.33 Urine Color Urine Clarity Urine pH Ur Specific [place] Urine Protein Urine Glucose (UA) Urine Ketones Urine Blood Urine Nitrate Urine Bilirubin Urine Urobilinogen Ur Leukocyte Esterase Urine WBC (Auto) Urine RBC (Auto) Influenza Typ A,B (EIA) Assessment & Plan (1) Shortness of breath Assessment and Plan: Cards (Zack) BiPAP F/U CXR Duonebs Q6 PRN Echo - F/U F/U KELLY F/U D-Dimer Status: Acute Priority: High (2) CAD (coronary artery disease) Assessment and Plan: cardiac cath in august shows 50% non obstructive stenosis in diagonal branch Crestor 10 PO HS ASA 81 PO QD Status: Acute (3) HTN (hypertension) Assessment and Plan: Norvasc 10 PO QD HCTZ 25 PO QD Losartan 50 PO QD Status: Acute (4) Hypokalemia Assessment and Plan: Mg sulfate 1g IV once KCl PO 40 mg KCl 10 meq IV Once F/U Repeat BMP Status: Acute Priority: High <Barry Rubio - Last Filed: 11/14/17 06:47> Results - Vital Signs Recent Vital Signs: Last Vital Signs Temp 97.9 F 11/14/17 02:51 Pulse 91 H 11/14/17 06:35 Resp 20 11/14/17 06:35 BP 173/89 H 11/14/17 06:35 Pulse Ox 94 L 11/14/17 06:36 - Labs Result Diagrams: 11/14/17 03:03 11/14/17 03:03 Labs: Laboratory Results - last 24 hr 11/14/17 11/14/17 11/14/17 02:56 02:56 03:00 WBC RBC Hgb Hct MCV MCH MCHC RDW Plt Count MPV Neut % (Auto) Lymph % (Auto) [place] % (Auto) Eos % (Auto) Baso % (Auto) Neut # Lymph # [place] # Eos # Baso # Neutrophils % (Manual) Lymphocytes % (Manual) Monocytes % (Manual) Eosinophils % (Manual) Basophils % (Manual) Platelet Estimate PT INR APTT Puncture Site Vbg pO2 25 L Zac Test Na VBG pH 7.42 VBG pCO2 56 VBG HCO3 31.1 VBG O2 Sat (Calc) 41.5 VBG Base Excess 9.7 H Sodium Potassium Chloride Carbon Dioxide Anion Gap BUN Creatinine Est GFR ( Amer) Est GFR (Non-Af Amer) Random Glucose Calcium Magnesium Total Bilirubin AST ALT Alkaline Phosphatase Troponin I NT-Pro-B Natriuret Pep Total Protein Albumin Globulin Albumin/Globulin Ratio Triglycerides Cholesterol LDL Cholesterol Direct HDL Cholesterol TSH 3rd Generation Urine Color Straw Urine Clarity Clear Urine pH 5.0 Ur Specific [place] 1.012 Urine Protein 2+ H Urine Glucose (UA) Normal Urine Ketones Negative Urine Blood Trace H Urine Nitrate Negative Urine Bilirubin Negative Urine Urobilinogen Normal Ur Leukocyte Esterase Neg Urine WBC (Auto) < 1 Urine RBC (Auto) 5 H Influenza Typ A,B (EIA) Negative for flu a/b 11/14/17 11/14/17 11/14/17 03:03 03:03 03:03 WBC 4.7 L RBC 4.44 Hgb 13.3 Hct 38.6 MCV 86.9 MCH 29.8 MCHC 34.3 RDW 14.2 Plt Count 243 MPV 8.4 Neut % (Auto) 33.3 L Lymph % (Auto) 28.9 [place] % (Auto) 13.9 H Eos % (Auto) 23.2 H Baso % (Auto) 0.7 Neut # 1.6 L Lymph # 1.4 [place] # 0.7 Eos # 1.1 H Baso # 0.0 Neutrophils % (Manual) 36 L Lymphocytes % (Manual) 30 Monocytes % (Manual) 13 H Eosinophils % (Manual) 20 H Basophils % (Manual) 1 Platelet Estimate Normal PT 12.7 H INR 1.1 APTT 27 Puncture Site pO2 Zac Test VBG pH VBG pCO2 VBG HCO3 VBG O2 Sat (Calc) VBG Base Excess Sodium 141 Potassium 2.8 L Chloride 98 Carbon Dioxide 35 H Anion Gap 11 BUN 28 H Creatinine 1.0 Est GFR ( Amer) > 60 Est GFR (Non-Af Amer) > 60 Random Glucose 121 H Calcium 8.7 Magnesium 1.9 Total Bilirubin 0.7 AST 36 ALT 27 Alkaline Phosphatase 97 Troponin I 0.0230 NT-Pro-B Natriuret Pep 447 Total Protein 9.1 H Albumin 4.1 Globulin 5.1 H Albumin/Globulin Ratio 0.8 L Triglycerides 59 Cholesterol 128 LDL Cholesterol Direct 51 HDL Cholesterol 48 TSH 3rd Generation 1.33 Urine Color Urine Clarity Urine pH Ur Specific [place] Urine Protein Urine Glucose (UA) Urine Ketones Urine Blood Urine Nitrate Urine Bilirubin Urine Urobilinogen Ur Leukocyte Esterase Urine WBC (Auto) Urine RBC (Auto) Influenza Typ A,B (EIA) Assessment & Plan - Date & Time Date: 11/14/17 (I have seen and examined the patient. I agree with the findings and plan of care as documented by Dr. Huffman. Patient with Shortness of breath and history of CAD. Consult to Dr. Dixon. Tona with EKG. F/U d- dimer results. Repeat 2D Echo. Aspirin and Statin. Continue bipap. Monitor for acute changes.) Time: 06:45 Attending/Attestation - Attestation I have personally seen and examined this patient.: Yes I have fully participated in the care of the patient.: Yes I have reviewed all pertinent clinical information: Yes
[2017-11-14] MEDS: Albuterol-Ipratrop 3 mg / 0.5 (3 ml) UD INH SCH ×4 (06:21→19:17)
[2017-11-14] MEDS ORDERED: Albuterol-Ipratrop 3 mg / 0.5 (3 ml) UD ONE (06:23)
--- NOTE | 2017-11-14 08:27 | RAD ---
PROCEDURE: CHEST RADIOGRAPH, 1 VIEW HISTORY: Shortness of breath COMPARISON: None available. FINDINGS: LUNGS: The lungs are well inflated and clear. PLEURA: No pneumothorax or pleural fluid seen. CARDIOVASCULAR: There is persistent mild cardiomegaly. OSSEOUS STRUCTURES: No significant abnormalities. VISUALIZED UPPER ABDOMEN: Normal. OTHER FINDINGS: None. IMPRESSION: No active pulmonary disease.
[2017-11-14] MEDS ORDERED: Iodixanol 320 MG/ML 100 ML BOTTLE IV ONE (08:46)
[2017-11-14] MEDS: MethylPREDNISolone 40 mg Vial IV SCH ×3 (09:00→21:44)
[2017-11-14] MEDS: Piperacill/Tazo 3.375gm in Dex 3.375 GM/50 ML BAG IVPB SCH ×3 (09:30→20:32)
--- NOTE | 2017-11-14 11:01 | CT ---
CTA chest PE protocol Indication: Rule out PE Technique: Contiguous axial images were obtained through the chest with intravenous contrast enhancement. Sagittal and coronal reconstructions were generated and reviewed. This CT exam was performed using 1 or more of the falling dose reduction techniques: Automated exposure control, adjustment of the MAA and/or kV according to patient size, and/or use of iterative reconstruction technique. IV Contrast: 100 mL Visipaque 320 Radiation dose (DLP): 469.48 MGy-cm. Comparison: None available Findings: The noncontrast mediastinal and hilar vascular structures appear grossly unremarkable. The heart appears within normal limits of size. Atherosclerotic calcifications of the aorta and branches. No large central or segmental pulmonary embolus evident. No focal consolidation. No pleural effusion. No pneumothorax. No suspicious pulmonary nodules measuring greater than 5 mm. Paucity of intra-abdominal fat as well as lack of IV contrast limits evaluation. Limited visualized portions of the upper abdomen demonstrates gastric wall thickening possibly exaggerated by under distension; correlate clinically for alternatives including gastritis. Partially imaged gaseous colonic distention and constipation. Degenerative changes. Impression: No large central or segmental pulmonary embolus evident. Limited visualized portions of the upper abdomen demonstrates gastric wall thickening possibly exaggerated by under distension; correlate clinically for alternatives including gastritis. Partially imaged gaseous colonic distention and constipation.
--- NOTE | 2017-11-14 11:35 | VASCLAB ---
PROCEDURE: Lower Extremity Venous Duplex Exam. HISTORY: LE Swelling PRIORS: None. TECHNIQUE: Bilateral common femoral, femoral, popliteal and posterior tibial, peroneal and great saphenous veins were evaluated. Flow was assessed with color Doppler, compressibility, assessment of phasic flow and augmentation response. Report prepared by DUDLEY Robles FINDINGS: RIGHT: 1. Common Femoral Vein: 1.1. Compressibility - Fully compressible: Thrombus - None : Flow - Phasic: Augmentation -Normal: Reflux - None. 2. Femoral Vein: 2.1. Compressibility - Fully compressible: Thrombus - None : Flow - Phasic: Augmentation -Normal: Reflux - None. 3. Popliteal Vein: 3.1. Compressibility - Fully compressible: Thrombus - None : Flow - Phasic: Augmentation -Normal: Reflux - None. 4. Posterior Tibial Vein: 4.1. Compressibility - Fully compressible: Thrombus - None: Flow - Phasic: Augmentation -Normal: Reflux - None. 5. Peroneal Vein: 5.1. Compressibility - Fully compressible: Thrombus - None: Flow - Phasic: Augmentation -Normal: Reflux - None. 6. Great Saphenous Vein: 6.1. Compressibility - Fully compressible: Thrombus - None: Flow - Phasic: Augmentation - Normal: Reflux - None. LEFT: 1. Common Femoral Vein: 1.1. Compressibility - Fully compressible: Thrombus - None: Flow - Phasic: Augmentation -Normal: Reflux - None. 2. Femoral Vein: 2.1. Compressibility - Fully compressible: Thrombus - None: Flow - Phasic: Augmentation -Normal: Reflux - None. 3. Popliteal Vein: 3.1. Compressibility - Fully compressible: Thrombus - None : Flow - Phasic: Augmentation -Normal: Reflux - None. 4. Posterior Tibial Vein: 4.1. Compressibility - Fully compressible: Thrombus - None: Flow - Phasic: Augmentation -Normal: Reflux - None. 5. Peroneal Vein: 5.1. Compressibility - Fully compressible: Thrombus - None: Flow - Phasic: Augmentation -Normal: Reflux - None. 6. Great Saphenous Vein: 6.1. Compressibility - Fully compressible: Thrombus - None: Flow - Phasic: Augmentation - Normal: Reflux - None. OTHER FINDINGS: Right: None significant. Left: None significant. IMPRESSION: Right: No evidence of deep or superficial vein thrombosis of the right lower extremity. Normal valve function noted of the right side. Left: No evidence of deep or superficial vein thrombosis of the left lower extremity. Normal valve function noted of the left side.
--- NOTE | 2017-11-14 14:23 | CP.PCM.PN ---
<Artie Scanlon - Last Filed: 11/14/17 14:10> Subjective - Date & Time of Evaluation Date of Evaluation: 11/14/17 Time of Evaluation: 14:10 - Subjective Subjective: PGY1 Medicine Note for Dr. Dinero Patient seen and examined at bedside this afternoon. Patient states that his breathing was greatly improved compared to when he came in last night. He also reports that the swelling in his legs has gone down as well. Patient reports he is feeling much better, his only complaint is a stuffy nose. He states he has to breathe through his mouth because he is unable to breathe through his nose. He denies fevers, chills, nausea, vomiting, diarrhea, constipation, lightheadedness or dizziness. Objective - Vital Signs/Intake and Output Vital Signs (last 24 hours): Temp Pulse Resp BP Pulse Ox 98.0 F 101 H 21 107/67 96 11/14/17 11:08 11/14/17 11:08 11/14/17 11:08 11/14/17 11:08 11/14/17 11:08 - Medications Medications: Current Medications Albuterol/Ipratropium (Duoneb 3 Mg/0.5 Mg (3 Ml) Ud) 3 ml INH RQ6 [facility] Last Admin: 11/14/17 06:21 Dose: 3 ml Amlodipine Besylate (Norvasc) 10 mg PO DAILY [facility] Last Admin: 11/14/17 11:00 Dose: 10 mg Aspirin (Aspirin Chewable) 81 mg PO DAILY [facility] Last Admin: 11/14/17 11:00 Dose: 81 mg Benzonatate (Tessalon Perles) 100 mg PO TID PRN PRN Reason: Cough Heparin Sodium (Porcine) (Heparin) 5,000 units SC Q12 [facility] Last Admin: 11/14/17 11:00 Dose: 5,000 units Hydrochlorothiazide (Hydrodiuril) 25 mg PO DAILY [facility] Last Admin: 11/14/17 11:00 Dose: 25 mg Piperacillin Sod/Tazobactam Sod (Zosyn 3.375 Gm Iv Premix) 3.375 gm in 50 mls @ 200 mls/hr IVPB Q6H [facility] Last Admin: 11/14/17 09:30 Dose: Not Given Losartan Potassium (Cozaar) 50 mg PO DAILY [facility] Last Admin: 11/14/17 11:00 Dose: 50 mg Methylprednisolone (Solu-Medrol) 40 mg IV Q8 [facility] Last Admin: 11/14/17 13:54 Dose: 40 mg Rosuvastatin Calcium (Crestor) 10 mg PO HS ERNIE - Labs Labs: 11/14/17 03:03 11/14/17 03:03 PT 12.7 SECONDS (9.7-12.2) H 11/14/17 03:03 INR 1.1 11/14/17 03:03 APTT 27 SECONDS (21-34) 11/14/17 03:03 - Constitutional Appears: Non-toxic, No Acute Distress - Head Exam Head Exam: ATRAUMATIC, NORMOCEPHALIC - Eye Exam Eye Exam: EOMI, Normal appearance. absent: Scleral icterus - ENT Exam ENT Exam: Mucous Membranes Moist Additional comments: dried mucous with rhinorrhea. - Respiratory Exam Respiratory Exam: Clear to Ausculation Bilateral, Rhonchi, NORMAL BREATHING PATTERN (on 2L NC). absent: Accessory Muscle Use, Rales, Wheezes, Respiratory Distress - Cardiovascular Exam Cardiovascular Exam: REGULAR RHYTHM, +S1 - GI/Abdominal Exam GI & Abdominal Exam: Soft, Normal Bowel Sounds. absent: Distended, Firm, Guarding, Rigid, Tenderness - Extremities Exam Extremities Exam: Normal Inspection. absent: Calf Tenderness, Pedal Edema - Neurological Exam Neurological Exam: Alert, Awake, Oriented x3 - Psychiatric Exam Psychiatric exam: Normal Affect, Normal Mood - Skin Skin Exam: Dry, Normal Color, Warm Assessment and Plan - Assessment and Plan (Free Text) Plan: Shortness of breath Cardiology consult, Dr. Dixon Pulmonary consult, Dr. Carias BiPAP - PRN; was resting comfortably on 2L NC during exam CXR 11/13/17 - No active pulmonary disease. CTA 11/14/17 - No large central or segmental pulmonary embolus evident. Limited visualized portions of the upper abdomen demonstrates gastric wall thickening possibly exaggerated by under distension; correlate clinically for alternatives including gastritis. Partially imaged gaseous colonic distention and constipation. Echo 11/14/17 - EF ~40% , awaiting official report LE Doppler 11/14/17 - negative b/l KELLY negative x2 D-Dimer - 2818 f/u strep pneumon, legionella, mycoplasma f/u procalcitonin Duonebs q6h PRN Solumedrol 40mg IV q8h Zosyn 3.375gm IVPB q6h (started on 11/14) f/u plum recs f/u cardio recs CAD (coronary artery disease) cardiac cath in august shows 50% non obstructive stenosis in diagonal branch Crestor 10 PO HS ASA 81 PO QD HTN (hypertension) Amlodipine 10 PO QD HCTZ 25 PO QD Losartan 50 PO QD Prophylactic Care Heparin 5,000units SC q12h Case discussed with Dr. Bar Scanlon PGY <Rory Dinero - Last Filed: 11/15/17 19:15> Objective - Vital Signs/Intake and Output Vital Signs (last 24 hours): Temp Pulse Resp BP Pulse Ox 97.8 F 94 H 20 143/85 97 11/15/17 16:06 11/15/17 18:13 11/15/17 16:06 11/15/17 16:06 11/15/17 16:06 Intake and Output: 11/15/17 11/16/17 18:59 06:59 Intake Total 510 Balance 510 - Medications Medications: Current Medications Albuterol/Ipratropium (Duoneb 3 Mg/0.5 Mg (3 Ml) Ud) 3 ml INH RQ6 [facility] Last Admin: 11/15/17 13:40 Dose: 3 ml Amlodipine Besylate (Norvasc) 10 mg PO DAILY [facility] Last Admin: 11/15/17 09:26 Dose: 10 mg Aspirin (Aspirin Chewable) 81 mg PO DAILY [facility] Last Admin: 11/15/17 09:26 Dose: 81 mg Benzonatate (Tessalon Perles) 100 mg PO TID PRN PRN Reason: Cough Heparin Sodium (Porcine) (Heparin) 5,000 units SC Q12 [facility] Last Admin: 11/15/17 09:26 Dose: 5,000 units Hydrochlorothiazide (Hydrodiuril) 25 mg PO DAILY [facility] Last Admin: 11/15/17 09:26 Dose: 25 mg Losartan Potassium (Cozaar) 100 mg PO DAILY [facility] Last Admin: 11/15/17 10:22 Dose: Not Given Potassium Chloride (K-Dur 20 Meq Er Tab) 20 meq PO ONCE ONE Stop: 11/15/17 20:20 Rosuvastatin Calcium (Crestor) 10 mg PO HS [facility] Last Admin: 11/14/17 21:44 Dose: 10 mg - Labs Labs: 11/15/17 07:26 11/15/17 07:26 PT 12.7 SECONDS (9.7-12.2) H 11/14/17 03:03 INR 1.1 11/14/17 03:03 APTT 27 SECONDS (21-34) 11/14/17 03:03 Attending/Attestation - Attestation I have personally seen and examined this patient.: Yes I have fully participated in the care of the patient.: Yes I have reviewed all pertinent clinical information, including history, physical exam and plan: Yes
[2017-11-14 15:05] LABS: BLOOD UREA NITROGEN 22 mg/dL (9-20); CALCIUM 8.1 mg/dl (8.6-10.4); CARBON DIOXIDE 36 mmol/L (22-30); CHLORIDE 95 mmol/L (98-107); GFR AFRICAN-AMERICAN > 60; GLUCOSE,RANDOM 117 mg/dL (75-110); SODIUM 138 mmol/L (132-148)
[2017-11-14 18:17] LABS: TROPONIN I 0.027 ng/mL (0.00-0.120)
--- NOTE | 2017-11-14 18:48 | CARD ---
APPROVED REPORT EXAM: Two-dimensional and M-mode echocardiogram with Doppler and color Doppler. Other Information Quality : GoodRhythm : INDICATION Abnormal EKG/Arrhythmia Dyspnea Cardiac Disease: CAD PROSTATE CA RISK FACTORS Hypertension 2D DIMENSIONS IVSd1.3 (0.7-1.1cm)LVDd5.3 (3.9-5.9cm) PWd0.9 (0.7-1.1cm)LVDs4.2 (2.5-4.0cm) FS (%) 20.3 %LVEF (%)41.1 (>50%) M-Mode DIMENSIONS Left Atrium (MM)3.50 (2.5-4.0cm)Aortic Root3.81 (2.2-3.7cm) Aortic Cusp Exc.2.35 (1.5-2.0cm) Aortic Valve AI P 1/2 [id number] Mitral Valve MV E Gotprzqn43.9cm/sMV A Pcpsilch334.0cm/sE/A ratio0.4 TDI E/Lateral E'0.0E/Medial E'0.0 Tricuspid Valve TR Peak Fuutufcu374of/sTR Peak Gr.[id number] LEFT VENTRICLE The left ventricle is normal size. There is mild concentric left ventricular hypertrophy. The systolic function is moderately impaired. Infero-Lateral hypokinesis Transmitral Doppler flow pattern is Grade I-abnormal relaxation pattern. RIGHT VENTRICLE The right ventricle is normal size. There is normal right ventricular wall thickness. The right ventricular systolic function is normal. ATRIA The left atrium size is normal. The right atrium size is normal. AORTIC VALVE The aortic valve is normal in structure. There is mild to moderate aortic regurgitation. MITRAL VALVE The mitral valve is normal in structure. There is no mitral valve stenosis. Mitral regurgitation is mild. TRICUSPID VALVE The tricuspid valve is normal in structure. There is mild tricuspid regurgitation. There is mild pulmonary hypertension. PULMONIC VALVE There is mild pulmonic valvular regurgitation. GREAT VESSELS The aortic root is mildly enlarged. The IVC is normal in size and collapses >50% with inspiration. PERICARDIAL EFFUSION There is no pericardial effusion. <Conclusion> The left ventricle is normal size. There is mild concentric left ventricular hypertrophy. The systolic function is moderately impaired. Infero-Lateral hypokinesis Transmitral Doppler flow pattern is Grade I-abnormal relaxation pattern. There is mild to moderate aortic regurgitation. Mitral regurgitation is mild. There is mild tricuspid regurgitation. There is mild pulmonary hypertension.
--- NOTE | 2017-11-14 20:38 | CP.PCM.PN ---
Subjective - Date & Time of Evaluation Date of Evaluation: 11/14/17 Time of Evaluation: 16:30 - Subjective Subjective: 72 M with hx of HTN Normal Coronaries and Normal EF admitted for hypertensive emergency with CHF and SBP>220 Responded to IV diuretics Patient complaint with medications Will adjust medications for HTN Check renal arterial duplex Objective - Vital Signs/Intake and Output Vital Signs (last 24 hours): Temp Pulse Resp BP Pulse Ox 97.5 F L 88 18 150/80 98 11/14/17 16:30 11/14/17 19:13 11/14/17 16:30 11/14/17 19:55 11/14/17 16:30 Intake and Output: 11/14/17 11/15/17 18:59 06:59 Intake Total 280 Output Total 300 Balance -20 - Medications Medications: Current Medications Albuterol/Ipratropium (Duoneb 3 Mg/0.5 Mg (3 Ml) Ud) 3 ml INH RQ6 [facility] Last Admin: 11/14/17 19:17 Dose: 3 ml Amlodipine Besylate (Norvasc) 10 mg PO DAILY [facility] Last Admin: 11/14/17 11:00 Dose: 10 mg Aspirin (Aspirin Chewable) 81 mg PO DAILY [facility] Last Admin: 11/14/17 11:00 Dose: 81 mg Benzonatate (Tessalon Perles) 100 mg PO TID PRN PRN Reason: Cough Heparin Sodium (Porcine) (Heparin) 5,000 units SC Q12 [facility] Last Admin: 11/14/17 11:00 Dose: 5,000 units Hydrochlorothiazide (Hydrodiuril) 25 mg PO DAILY [facility] Last Admin: 11/14/17 11:00 Dose: 25 mg Piperacillin Sod/Tazobactam Sod (Zosyn 3.375 Gm Iv Premix) 3.375 gm in 50 mls @ 200 mls/hr IVPB Q6H [facility] Last Admin: 11/14/17 20:32 Dose: 200 mls/hr Losartan Potassium (Cozaar) 50 mg PO DAILY [facility] Last Admin: 11/14/17 11:00 Dose: 50 mg Methylprednisolone (Solu-Medrol) 40 mg IV Q8 [facility] Last Admin: 11/14/17 13:54 Dose: 40 mg Potassium Chloride (K-Dur 20 Meq Er Tab) 20 meq PO ONCE ONE Stop: 11/15/17 20:20 Rosuvastatin Calcium (Crestor) 10 mg PO HS ERNIE - Labs Labs: 11/14/17 03:03 11/14/17 08:56 PT 12.7 SECONDS (9.7-12.2) H 11/14/17 03:03 INR 1.1 11/14/17 03:03 APTT 27 SECONDS (21-34) 11/14/17 03:03
[2017-11-14 21:25] LABS: LEGIONELLA AG URINE NEGATIVE (NEGATIVE)
[2017-11-15] MEDS: Albuterol-Ipratrop 3 mg / 0.5 (3 ml) UD INH SCH ×4 (01:51→19:23)
[2017-11-15] MEDS: Piperacill/Tazo 3.375gm in Dex 3.375 GM/50 ML BAG IVPB SCH ×2 (03:48→09:25)
[2017-11-15] MEDS: MethylPREDNISolone 40 mg Vial IV SCH (06:06)
[2017-11-15 07:38] LABS: BASO % 0.1 % (0.0-2.0); HEMATOCRIT 37.5 % (35.0-51.0); LYMPH # 0.6 K/uL (1.0-4.3); LYMPH % 9.4 % (20.0-40.0); MEAN CELL VOLUME 85.8 fL (80.0-94.0); MEAN CORPUSCULAR HEMOGLOBIN 30.1 pg (27.0-31.0); MEAN PLATELET VOLUME 8.4 fL (7.2-11.7); MONO # 0.3 K/uL (0.0-0.8); MONO % 4.1 % (0.0-10.0); PLATELET COUNT 234 K/uL (130-400); RED CELL DISTRIBUTION WIDTH 13.2 % (11.5-14.5); WHITE BLOOD COUNT 6.6 K/uL (4.8-10.8)
[2017-11-15 08:50] LABS: ALB/GLOB RATIO 0.8 (1.0-2.1); ALKALINE PHOSPHATASE 86 U/L (38-126); ALT/SGPT 24 U/L (21-72); AST/SGOT 31 U/L (17-59); BILIRUBIN,TOTAL 0.6 mg/dL (0.2-1.3); BLOOD UREA NITROGEN 28 mg/dL (9-20); CALCIUM 8.4 mg/dl (8.6-10.4); CARBON DIOXIDE 33 mmol/L (22-30); CHLORIDE 93 mmol/L (98-107); GFR AFRICAN-AMERICAN > 60; GLUCOSE,RANDOM 159 mg/dL (75-110); SODIUM 132 mmol/L (132-148); TOTAL PROTEIN 8.2 g/dL (6.3-8.3)
[2017-11-15 09:52] LABS: NEUTROPHIL 78 % (50-75); TOTAL CELLS COUNTED 100
[2017-11-15] MEDS ORDERED: Potassium Chloride 20 mEq ER Tab PO SCH ×2 (10:00)
[2017-11-15] MEDS ORDERED: Potassium Chloride 20 mEq ER Tab PO ONE ×2 (10:15→20:19)
--- NOTE | 2017-11-15 14:14 | CP.PCM.DIS ---
Provider - Provider Date of Admission: 11/14/17 04:29 Attending physician: Barry Rubio MD Consults: Cardio: Dr. Dixon Time Spent in preparation of Discharge (in minutes): 30 Hospital Course - Lab Results Lab Results: Most Recent Lab Values WBC 6.6 K/uL (4.8-10.8) 11/15/17 07:26 RBC 4.37 Mil/uL (4.40-5.90) L 11/15/17 07:26 Hgb 13.1 g/dL (12.0-18.0) 11/15/17 07:26 Hct 37.5 % (35.0-51.0) 11/15/17 07:26 MCV 85.8 fL (80.0-94.0) 11/15/17 07:26 MCH 30.1 pg (27.0-31.0) 11/15/17 07:26 MCHC 35.0 g/dL (33.0-37.0) 11/15/17 07:26 RDW 13.2 % (11.5-14.5) 11/15/17 07:26 Plt Count 234 K/uL (130-400) 11/15/17 07:26 MPV 8.4 fL (7.2-11.7) 11/15/17 07:26 Neut % (Auto) 86.4 % (50.0-75.0) H 11/15/17 07:26 Lymph % (Auto) 9.4 % (20.0-40.0) L 11/15/17 07:26 Nash % (Auto) 4.1 % (0.0-10.0) 11/15/17 07:26 Eos % (Auto) 0.0 % (0.0-4.0) 11/15/17 07:26 Baso % (Auto) 0.1 % (0.0-2.0) 11/15/17 07:26 Neut # 5.7 K/uL (1.8-7.0) 11/15/17 07:26 Lymph # 0.6 K/uL (1.0-4.3) L 11/15/17 07:26 Nash # 0.3 K/uL (0.0-0.8) 11/15/17 07:26 Eos # 0.0 K/uL (0.0-0.7) 11/15/17 07:26 Baso # 0.0 K/uL (0.0-0.2) 11/15/17 07:26 Neutrophils % (Manual) 78 % (50-75) H 11/15/17 07:26 Band Neutrophils % 6 % (0-2) H 11/15/17 07:26 Lymphocytes % (Manual) 11 % (20-40) L 11/15/17 07:26 Monocytes % (Manual) 5 % (0-10) 11/15/17 07:26 Eosinophils % (Manual) 20 % (0-4) H 11/14/17 03:03 Basophils % (Manual) 1 % (0-2) 11/14/17 03:03 Platelet Estimate Normal (NORMAL) 11/15/17 07:26 RBC Morphology Normal 11/15/17 07:26 PT 12.7 SECONDS (9.7-12.2) H 11/14/17 03:03 INR 1.1 11/14/17 03:03 APTT 27 SECONDS (21-34) 11/14/17 03:03 D-Dimer, Quantitative 2818 ng/mlDDU (0-243) H 11/14/17 06:08 Puncture Site Vbg 11/14/17 03:00 pO2 25 mm/Hg (30-55) L 11/14/17 03:00 Zac Test Na 11/14/17 03:00 VBG pH 7.42 (7.32-7.43) 11/14/17 03:00 VBG pCO2 56 mmHg (40-60) 11/14/17 03:00 VBG HCO3 31.1 mmol/L 11/14/17 03:00 VBG O2 Sat (Calc) 41.5 % (40-65) 11/14/17 03:00 VBG Base Excess 9.7 mmol/L (0.0-2.0) H 11/14/17 03:00 Sodium 132 mmol/L (132-148) 11/15/17 07:26 Potassium 3.0 mmol/L (3.6-5.2) L 11/15/17 07:26 Chloride 93 mmol/L (98-107) L 11/15/17 07:26 Carbon Dioxide 33 mmol/L (22-30) H 11/15/17 07:26 Anion Gap 9 (10-20) L 11/15/17 07:26 BUN 28 mg/dL (9-20) H 11/15/17 07:26 Creatinine 1.0 mg/dL (0.8-1.5) 11/15/17 07:26 Est GFR ( Amer) > 60 11/15/17 07:26 Est GFR (Non-Af Amer) > 60 11/15/17 07:26 Random Glucose 159 mg/dL (75-110) H 11/15/17 07:26 Calcium 8.4 mg/dl (8.6-10.4) L 11/15/17 07:26 Magnesium 1.9 mg/dL (1.6-2.3) 11/14/17 03:03 Total Bilirubin 0.6 mg/dL (0.2-1.3) 11/15/17 07:26 AST 31 U/L (17-59) 11/15/17 07:26 ALT 24 U/L (21-72) 11/15/17 07:26 Alkaline Phosphatase 86 U/L (38-126) 11/15/17 07:26 Total Creatine Kinase 330 U/L (55-170) H 11/14/17 17:44 CK-MB (Mass) 3.72 ng/mL (0.0-3.38) H 11/14/17 17:44 Troponin I 0.0270 ng/mL (0.00-0.120) 11/14/17 17:44 NT-Pro-B Natriuret Pep 447 pg/mL (0-900) 11/14/17 03:03 Total Protein 8.2 g/dL (6.3-8.3) 11/15/17 07:26 Albumin 3.7 g/dL (3.5-5.0) 11/15/17 07:26 Globulin 4.6 gm/dL (2.2-3.9) H 11/15/17 07:26 Albumin/Globulin Ratio 0.8 (1.0-2.1) L 11/15/17 07:26 Triglycerides 59 mg/dL (0-149) 11/14/17 03:03 Cholesterol 128 mg/dL (0-199) 11/14/17 03:03 LDL Cholesterol Direct 51 mg/dL (0-129) 11/14/17 03:03 HDL Cholesterol 48 mg/dL (30-70) 11/14/17 03:03 Procalcitonin < 0.05 NG/ML (0.19-0.49) L 11/14/17 11:11 TSH 3rd Generation 1.33 mIU/L (0.46-4.68) 11/14/17 03:03 Urine Color Straw (YELLOW) 11/14/17 02:56 Urine Clarity Clear (Clear) 11/14/17 02:56 Urine pH 5.0 (5.0-8.0) 11/14/17 02:56 Ur Specific [place] 1.012 (1.003-1.030) 11/14/17 02:56 Urine Protein 2+ mg/dL (NEGATIVE) H 11/14/17 02:56 Urine Glucose (UA) Normal mg/dL (Normal) 11/14/17 02:56 Urine Ketones Negative mg/dL (NEGATIVE) 11/14/17 02:56 Urine Blood Trace (NEGATIVE) H 11/14/17 02:56 Urine Nitrate Negative (NEGATIVE) 11/14/17 02:56 Urine Bilirubin Negative (NEGATIVE) 11/14/17 02:56 Urine Urobilinogen Normal mg/dL (0.2-1.0) 11/14/17 02:56 Ur Leukocyte Esterase Neg Vikas/uL (Negative) 11/14/17 02:56 Urine WBC (Auto) < 1 /hpf (0-5) 11/14/17 02:56 Urine RBC (Auto) 5 /hpf (0-3) H 11/14/17 02:56 Urine Opiates Screen Negative (NEGATIVE) 11/14/17 06:22 Urine Methadone Screen Negative (NEGATIVE) 11/14/17 06:22 Ur Barbiturates Screen Negative (NEGATIVE) 11/14/17 06:22 Ur Phencyclidine Scrn Negative (NEGATIVE) 11/14/17 06:22 Ur Amphetamines Screen Negative (NEGATIVE) 11/14/17 06:22 U Benzodiazepines Scrn Negative (NEGATIVE) 11/14/17 06:22 U Oth Cocaine Metabols Negative (NEGATIVE) 11/14/17 06:22 U Cannabinoids Screen Negative (NEGATIVE) 11/14/17 06:22 Influenza Typ A,B (EIA) Negative for flu a/b (NEGATIVE) 11/14/17 02:56 Ur L.pneumophila Ag Negative (NEGATIVE) 11/14/17 11:11 Mycoplasma pneumon IgM Negative (NEGATIVE) 11/14/17 11:11 Discharge Exam - Head Exam Head Exam: ATRAUMATIC, NORMOCEPHALIC Discharge Plan - Discharge Medications Prescriptions: hydrALAZINE [Apresoline] 25 mg PO TID #90 tab Mometasone Furoate [Nasonex] 0.05 mg NS ASDIR PRN #1 bottle PRN Reason: Nasal Congestion - Follow Up Plan Condition: GUARDED Disposition: HOME/ ROUTINE Additional Instructions: Patient is to be discharged home per Dr. Dinero. The patient is to continue taking his medications as directed by his primary care physician. Patient is to follow up with his primary care physician within one to two weeks of being discharged. If the patient does not have primary care physician, please follow up with the [facility] located in the [facility]. If the patient has any new or worsening symptoms, please go to the nearest emergency room. New prescriptions given: Hydralazine 25mg PO TID Nasonex Nasal [place] Referrals: [facility] [Outside]
--- NOTE | 2017-11-15 18:43 | CARD ---
APPROVED REPORT EKG Measurement Heart [id number] <Conclusion> Sinus rhythm with frequent and consecutive premature ventricular complexes Left ventricular hypertrophy with repolarization abnormality Abnormal ECG
[2017-11-16 00:47] VITALS: O2SAT 99
[2017-11-16] MEDS: Albuterol-Ipratrop 3 mg / 0.5 (3 ml) UD INH SCH ×2 (01:37→07:50)
[2017-11-16 09:11] VITALS: BP 144/87; PULSE 76; RESP 18; TEMP 97.4
--- NOTE | 2017-11-16 16:38 | CP.PCM.PN ---
Subjective - Date & Time of Evaluation Date of Evaluation: 11/15/17 Time of Evaluation: 09:25 - Subjective Subjective: Patient seen and evaluated Denies chest pain and dyspnea Diastolic CHF Will monitor BP Objective - Vital Signs/Intake and Output Vital Signs (last 24 hours): Temp Pulse Resp BP Pulse Ox 97.4 F L 76 18 144/87 99 11/16/17 08:25 11/16/17 08:25 11/16/17 08:25 11/16/17 08:25 11/16/17 08:25 Intake and Output: 11/16/17 11/16/17 06:59 18:59 Intake Total 800 Balance 800 - Labs Labs: 11/15/17 07:26 11/15/17 07:26 PT 12.7 SECONDS (9.7-12.2) H 11/14/17 03:03 INR 1.1 11/14/17 03:03 APTT 27 SECONDS (21-34) 11/14/17 03:03
--- NOTE | 2017-11-16 16:40 | CP.PCM.PN ---
Subjective - Date & Time of Evaluation Date of Evaluation: 11/16/17 Time of Evaluation: 08:15 - Subjective Subjective: Patient seen and evaluated Denies chest pain and dyspnea Diastolic CHF HTN controlled For d/c today Objective - Vital Signs/Intake and Output Vital Signs (last 24 hours): Temp Pulse Resp BP Pulse Ox 97.4 F L 76 18 144/87 99 11/16/17 08:25 11/16/17 08:25 11/16/17 08:25 11/16/17 08:25 11/16/17 08:25 Intake and Output: 11/16/17 11/16/17 06:59 18:59 Intake Total 800 Balance 800 - Labs Labs: 11/15/17 07:26 11/15/17 07:26 PT 12.7 SECONDS (9.7-12.2) H 11/14/17 03:03 INR 1.1 11/14/17 03:03 APTT 27 SECONDS (21-34) 11/14/17 03:03
--- NOTE | 2017-11-19 11:16 | VASCLAB ---
PROCEDURE: Ultrasonography renal arterial evaluation HISTORY: Hypertensive urgency COMPARISON: None available. TECHNIQUE: Real-time ultrasonography evaluation of the renal arteries were performed. Comparison is made to the aorta. Report prepared by SERINA Whitaker, RVT FINDINGS: AORTA: Patent. Peak systolic velocity 141 centimeters/second RIGHT RENAL ARTERY: Renal artery to aorta ratio: 0.9 * Proximal segment: Patent. Peak systolic velocity 131 centimeters/second * Mid segment: Patent. Peak systolic velocity 122 centimeters/second * Distal segment: Patent. Peak systolic velocity 107 centimeters/second Other findings: Right Kidney measures approximately 11.24 centimeters. LEFT RENAL ARTERY: Renal artery to aorta ratio: 0.9 * Proximal segment: Patent. Peak systolic velocity 123 centimeters/second * Mid segment: Patent. Peak systolic velocity 107 centimeters/second * Distal segment: Patent. Peak systolic velocity 114 centimeters/second Other findings: Left Kidney measures approximately 10.60 centimeters. IMPRESSION: No definite hemodynamically significant stenosis involving the renal arteries as visualized. Cystic structure noted in the left kidney.
== END 2017-11-16 12:00 | disposition home or self-care (01) | DRG 292 ==
LOC: C.ER 02:44 → C.9E 04:29 → C.5S 07:07
PROVIDERS: ADMIT Family Medicine; ATTEND Family Medicine
DX: I11.0 Hypertensive heart disease with heart failure (principal); I16.1 Hypertensive emergency; E78.00 Pure hypercholesterolemia, unspecified; I50.30 Unspecified diastolic (congestive) heart failure; I25.10 Atherosclerotic heart disease of native coronary artery without angina pectoris; E87.6 Hypokalemia; J40 Bronchitis, not specified as acute or chronic; Z85.21 Personal history of malignant neoplasm of larynx; Z85.46 Personal history of malignant neoplasm of prostate; Z87.891 Personal history of nicotine dependence